=== PATIENT | female | born 1975 | race Hispanic/Latino ===

== ENCOUNTER 2017-05-28 11:15 | Emergency (ER) | payer SELFPAY ==
[2017-05-28 11:28] VITALS: BMI 32.9
[2017-05-28 11:30] VITALS: PULSE 85; RESP 17; TEMP 98.9; O2SAT 99
--- NOTE | 2017-05-28 12:57 | ED PDOC ---
HPI: General Adult Time Seen by Provider: 05/28/17 11:55 Chief Complaint (Nursing): Hip Pain Chief Complaint (Provider): left hip pain/back pain History Per: Patient (41 y/o female here with left sided back and hip pain noted ongoing. Denies any falls. Has taken motrin 600mg without relief. Denies any repetitive activity/ heavy lifting.) Past Medical History Reviewed: Historical Data, Nursing Documentation, Vital Signs Vital Signs: Last Vital Signs Temp 98.9 F 05/28/17 11:29 Pulse 85 05/28/17 11:29 Resp 17 05/28/17 11:29 BP 116/93 H 05/28/17 11:29 Pulse Ox 99 05/28/17 11:29 - Medical History PMH: HTN - Family History Family History: States: Unknown Family Hx - Home Medications Home Medications: Ambulatory Orders Medication Instructions Recorded Famotidine [Pepcid] 20 mg PO BID #20 tab 06/25/16 hydroCHLOROthiazide [Hydrodiuril] 25 mg PO DAILY #10 tab 06/25/16 Famotidine [Pepcid] 20 mg PO BID #30 tab 10/21/16 Naproxen 1 tab PO BID PRN #14 tab 05/28/17 diaZEpam [Valium] 5 mg PO Q6 PRN #5 tab 05/28/17 - Allergies Allergies/Adverse Reactions: Allergies Allergy/AdvReac Type Severity Reaction Status Date / Time No Known Allergies Allergy Verified 06/25/16 06:32 Review of Systems ROS Statement: Except As Marked, All Systems Reviewed And Found Negative Musculoskeletal: Positive for: Back Pain, Other (hip pain) Physical Exam - Reviewed Nursing Documentation Reviewed: Yes Vital Signs Reviewed: Yes - Physical Exam Appears: Positive for: Well, Non-toxic, No Acute Distress Head Exam: Positive for: ATRAUMATIC, NORMAL INSPECTION, NORMOCEPHALIC Skin: Positive for: Normal Color, Warm, DRY Eye Exam: Positive for: EOMI, Normal appearance, PERRL ENT: Positive for: Normal ENT Inspection Neck: Positive for: Normal, Painless ROM Cardiovascular/Chest: Positive for: Regular Rate, Rhythm Respiratory: Positive for: CNT, Normal Breath Sounds Gastrointestinal/Abdominal: Positive for: Normal Exam, Bowel Sounds, Soft Back: Positive for: Normal Inspection, Vertebral Tenderness (left paralumbar tenderness) Extremity: Positive for: Normal ROM, Other (left side gluteal tenderness) Neurologic/Psych: Positive for: Alert, Oriented - Laboratory Results Urine POC: Negative - ECG O2 Sat by Pulse Oximetry: 99 - Progress ED Course And Treament: Toradol 30 mg IM x 1 dose Disposition - Clinical Impression Clinical Impression: Hip pain, Back pain - Patient ED Disposition Is Patient to be Admitted: No - Disposition Referrals: [facility] [Outside] Disposition: Routine/Home Disposition Time: 13:00 Condition: FAIR Prescriptions: diaZEpam [Valium] 5 mg PO Q6 PRN #5 tab PRN Reason: Muscle Spasm Naproxen 1 tab PO BID PRN #14 tab PRN Reason: Pain, Moderate (4-7) Instructions: Hip Pain (ED), Back Pain (ED) Forms: [employer] (Icelandic) Print Language: MONTENEGRIN
[2017-05-28 13:19] VITALS: BP 146/96
== END 2017-05-28 13:19 | disposition home or self-care (01) ==
LOC: H.ER 11:15
DX: M25.552 Pain in left hip (principal); M54.9 Dorsalgia, unspecified
CPT/HCPCS: 81025; 96372; 99283; J1885